=== PATIENT | female | born 1995 | race Two or more races ===

== ENCOUNTER 2022-03-18 06:17 | Emergency (ER) | payer OTHER ==
[~2022-03-18] VITALS: Ht 149.9 cm; Wt 63.6 kg
[2022-03-18 06:34] VITALS: BP 128/86
== END 2022-03-18 07:40 | disposition home or self-care (01) ==
LOC: ER 06:17
DX: F41.9 Anxiety disorder, unspecified (principal)
CPT/HCPCS: 93005